=== PATIENT | male | born 1990 | race Caucasian/White ===

== ENCOUNTER 2020-05-31 16:39 | Outpatient (REF) | payer MEDICAID, SELFPAY ==
--- NOTE | ~2020-05-31 | US_ITS ---
EXAMINATION: US SCROTUM CLINICAL INFORMATION: Left sided pain suggestive of varicocele. COMPARISON: None TECHNIQUE: A sonogram of the scrotum was performed assessing cox-scale appearance and color Doppler flow. FINDINGS: RIGHT: Right testicle measures 4.5 x 2.3 x 3.3 cm, volume 17.3 mL. No focal testicular parenchymal lesions are visualized. Normal color Doppler flow of the right testicle. Right epididymal head is normal in size. No right hydrocele or varicocele is seen. LEFT: Left testicle measures 4.6 x 2.3 x 3.0 cm, volume 16.7 mL. No focal testicular parenchymal lesions are visualized. Normal color Doppler flow the left testicle. Left epididymal head is normal in size. No left hydrocele is seen. Small left-sided varicocele with veins measuring up to 4.4 mm with Valsalva maneuvering. US/US scrotum IMPRESSION: -Symmetrically sized testicles demonstrating normal color Doppler flow. -Small left-sided varicocele.
== END 2020-05-31 16:40 | disposition home or self-care (01) ==
LOC: HO.US 16:39
PROVIDERS: PCP Nurse Practitioner Primary Care; Visit Provider Nurse Practitioner Primary Care
DX: I86.1 Scrotal varices (principal); N50.812 Left testicular pain
CPT/HCPCS: 76870

== ENCOUNTER → 2020-08-18 13:58 | Outpatient (BNVA) | payer MEDICAID, SELFPAY | PROVIDERS: PCP Nurse Practitioner Primary Care; Visit Provider Urology | DX: Z13.89 Encounter for screening for other disorder (principal) | CPT/HCPCS: 99202 ==

== ENCOUNTER 2020-08-28 05:03 | Emergency (ER) | payer MEDICAID, SELFPAY ==
[2020-08-28 05:14] VITALS: BP 131/76; PULSE 69; RESP 16; TEMP 36.3; O2SAT 98; BMI 28.5
--- NOTE | 2020-08-28 05:28 | PC.NURSE ---
PT WAS ADMINISTERED BENADRYL 50 MG TAB P.O.
[2020-08-28] MEDS: diphenhydrAMINE HCL 25 MG TABLET 50 MG PO (05:59)
[2020-08-28 06:00] VITALS: BP 136/83; PULSE 58; RESP 17; O2SAT 100
[2020-08-28] MEDS: Famotidine/PF 20 MG/2 ML VIAL IVPUSH (06:13)
[2020-08-28] MEDS: methylPREDNISolone Sod Succ 125 MG/2 ML VIAL IVPUSH (06:13)
[2020-08-28 06:25] LABS: MANUAL DIFF FLAG NO
[2020-08-28 06:26] LABS: Basophils Percent Auto 0.2 % (0-2); Eosinophils Absolute Auto 0.1 X10*3/uL (0.0-0.4); Eosinophils Percent Auto 0.7 % (0-4); Hematocrit 47.8 % (42-52); Hemoglobin 17.2 g/dl (14.0-18.0); Imm Gran Abs Auto 0.04 X10*3/uL (0.00-0.03); Imm Gran Pct Auto 0.3 % (0.0-0.4); Lymphocytes Absolute Auto 1.7 X10*3/uL (1.2-4.9); Mean Corpuscular Hemoglobin 32.1 pg (27.0-33.0); Mean Corpuscular Volume 89.2 fL (80-98); Mean Platelet Volume 10.2 fL (9.4-12.4); Monocytes Absolute Auto 0.6 X10*3/uL (0.1-1.2); Monocytes Percent Auto 5.1 % (2-11); Neutrophils Absolute Auto 9.8 X10*3/uL (2.0-8.3); Neutrophils Percent Auto 79.7 % (45-73); Platelet Count 225 X10*3/uL (160-400); Red Blood Count 5.36 X10*6/uL (4.60-5.80); Red Cell Distribution Width 12.6 % (11.0-16.0); White Blood Count 12.3 X10*3/uL (4.8-10.8)
[2020-08-28 07:08] VITALS: BP 127/79; PULSE 77; RESP 16; O2SAT 97
--- NOTE | 2020-08-28 07:10 | PC.NURSE ---
INTRODUCED SELF TO PT. HIVES APPEAR TO HAVE MOSTLY RESOLVED, SOME REMAIN PRESENT ON HIS BACK. LIP SWELLING HAS RESOLVED. PT REPORTS FEELING WELL, ASIDE FROM MILD HEADACHE R/T ETOH CONSUMPTION LAST NIGHT. NO COMPLAINTS OFFERED.
--- NOTE | 2020-08-28 07:19 | ED_ITS ---
HPI - Allergic Reaction General Chief complaint: Allergic Reaction <Oksana Yoo MD - Last Filed: 08/28/20 07:32> Stated complaint: allergic reaction <Oksana Yoo MD - Last Filed: 08/28/20 07:32> Time Seen by Provider: 08/28/20 06:08 <Oksana Yoo MD - Last Filed: 08/28/20 07:32> Source: patient <Oksana Yoo MD - Last Filed: 08/28/20 07:32> Mode of arrival: ambulatory <Oksana Yoo MD - Last Filed: 08/28/20 07:32> History of Present Illness HPI narrative: 30-year-old male without significant past medical history and no known allergies who presents after waking up and discovering that his back was covered and are as itchy rash over the entire back and wrapping around to the anterior thorax as well as involving bilateral upper extremities. Denies feeling scratchy / itchy throat or feeling like there was difficulty with swallowing, patient reports that his lips are swollen. Patient denies any new medications, new formulations of current medications, lotions/ soaps / linen exposure and can only recall that last night he had his typical IPAs but then he did drink some homemade moonshine that had been made with watermelon. Patient endorses that he has had this before but maybe there was a slightly different ingredient. <Oksana Yoo MD - Last Filed: 08/28/20 07:32> Related Data Home medications: Previous Rx's Medication Instructions Recorded epinephrine [EpiPen] 0.3 mg IM Q10M PRN #1 ea 08/28/20 <Oksana Yoo MD - Last Filed: 08/28/20 07:32> Allergies/adverse reactions: Allergies Allergy/AdvReac Type Severity Reaction Status Date / Time No Known Allergies Allergy Verified 08/28/20 05:14 [No Known Allergies*] <Oksana Yoo MD - Last Filed: 08/28/20 07:32> Review of Systems Review of Systems: Pertinent positives and negatives as stated in HPI 10 point review of systems is otherwise negative. <Oksana Yoo MD - Last Filed: 08/28/20 07:32> PMFSH Past Medical History Source: nursing notes reviewed <Oksana Yoo MD - Last Filed: 08/28/20 07:32> Medical History: Medical History Left inguinal hernia <Oksana Yoo MD - Last Filed: 08/28/20 07:32> Surgical History: Surgical History History of surgery <Oksana Yoo MD - Last Filed: 08/28/20 07:32> Social History Social History: Social History Advance Directives: No Advance Directives Information Provided: No <Oksana Yoo MD - Last Filed: 08/28/20 07:32> Physical Exam Vital Signs: Vital Signs: Last Vital Signs Temp 97.4 F 08/28/20 05:14 Pulse 77 08/28/20 07:08 Resp 16 08/28/20 07:08 BP 127/79 08/28/20 07:08 Pulse Ox 97 08/28/20 07:08 Body Mass Index 28.5 <Oksana Yoo MD - Last Filed: 08/28/20 07:32> Vital Signs: Last Vital Signs Temp 97.4 F 08/28/20 05:14 Pulse 77 08/28/20 07:08 Resp 16 08/28/20 07:08 BP 127/79 08/28/20 07:08 Pulse Ox 97 08/28/20 07:08 Body Mass Index 28.5 <Isidro John MD - Last Filed: 08/28/20 08:37> VITAL SIGNS: Reviewed. GENERAL: Well developed, well nourished, in no acute distress. HEAD: Normocephalic/atraumatic EYES: PERRLA, EOMI NOSE: Nares patent bilateral OROPHARYNX: no oral lesions noted, posterior pharynx clear, there is noted mild swelling to the lips, but no tongue or posterior pharynx or facial swelling noted NECK: Supple, no adenopathy LUNGS: Normal breath sounds, no wheezes/rales/stridor, no tachypnea. SpO2<97> CARDIOVASCULAR: Regular rate and rhythm without noted murmurs ABDOMEN: Soft, non-tender, non-distended with bowel sounds. SKIN: Inspection of the skin reveals raised rash to primarily the posterior thorax with involvement of the anterior thorax and abdomen as well as bilateral upper extremities NEUROLOGIC: Alert and oriented x 4. <Oksana Yoo MD - Last Filed: 08/28/20 07:32> Course Course Course Narrative: 30-year-old male with history and clinical presentation consistent with angioedema and hives but unknown trigger. On arrival patient received Benadryl, Pepcid, Solu-Medrol, airway intact. 0655: On re-evaluation there is been almost complete resolution of hives and patient reports that his lips are feeling much reduced in size. Signed out to Dr John. <Oksana Yoo MD - Last Filed: 08/28/20 07:32> MDM - Allergic Reaction Lab Data Result diagrams: : 08/28/20 06:20 08/28/20 06:20 <Oksana Yoo MD - Last Filed: 08/28/20 07:32> Labs: Lab Results 08/28/20 08/28/20 Range/Units 06:20 06:20 WBC 12.3 H (4.8-10.8) X10*3/uL RBC 5.36 (4.60-5.80) X10*6/uL Hgb 17.2 (14.0-18.0) g/dl Hct 47.8 (42-52) % MCV 89.2 (80-98) fL MCH 32.1 (27.0-33.0) pg MCHC 36.0 (31.0-36.0) g/dl RDW 12.6 (11.0-16.0) % Plt Count 225 (160-400) X10*3/uL MPV 10.2 (9.4-12.4) fL Immature Gran % (Auto) 0.3 (0.0-0.4) % Neut % (Auto) 79.7 H (45-73) % Lymph % (Auto) 14.0 L (20-40) % [place] % (Auto) 5.1 (2-11) % Eos % (Auto) 0.7 (0-4) % Baso % (Auto) 0.2 (0-2) % Lymph # (Auto) 1.7 (1.2-4.9) X10*3/uL [place] # (Auto) 0.6 (0.1-1.2) X10*3/uL Eos # (Auto) 0.1 (0.0-0.4) X10*3/uL Baso # (Auto) 0.0 (0.0-0.2) X10*3/uL Abs Immat Gran (auto) 0.04 H (0.00-0.03) X10*3/uL Absolute Neuts (auto) 9.8 H (2.0-8.3) X10*3/uL Absolute Nucleated RBC 0.000 (0.0-0.012) X10*3/uL Nucleated RBC % (auto) 0.0 (0.0-0.2) /100WBC Sodium 144 (135-145) mmol/L Potassium 3.9 (3.3-5.1) mmol/L Chloride 107 (96-108) mmol/L Carbon Dioxide 27 (22-29) mmol/L Anion Gap 14 (12-20) BUN 10 (9-16) mg/dL Creatinine 1.05 (0.5-1.4) mg/dL Estim Creat Clear Calc 118.7 Estimated GFR > 60 Random Glucose 70 (60-115) mg/dL Calcium 9.5 (8.4-10.2) mg/dL Total Bilirubin 1.7 H (0.0-1.0) mg/dL AST 30 (5-37) U/L ALT 58 H (0-40) U/L Alkaline Phosphatase 88 (39-117) U/L Total Protein 7.4 (6.5-8.0) g/dL Albumin 4.6 (3.5-5.0) g/dL <Oksana Yoo MD - Last Filed: 08/28/20 07:32> Lab Results 08/28/20 08/28/20 Range/Units 06:20 06:20 WBC 12.3 H (4.8-10.8) X10*3/uL RBC 5.36 (4.60-5.80) X10*6/uL Hgb 17.2 (14.0-18.0) g/dl Hct 47.8 (42-52) % MCV 89.2 (80-98) fL MCH 32.1 (27.0-33.0) pg MCHC 36.0 (31.0-36.0) g/dl RDW 12.6 (11.0-16.0) % Plt Count 225 (160-400) X10*3/uL MPV 10.2 (9.4-12.4) fL Immature Gran % (Auto) 0.3 (0.0-0.4) % Neut % (Auto) 79.7 H (45-73) % Lymph % (Auto) 14.0 L (20-40) % [place] % (Auto) 5.1 (2-11) % Eos % (Auto) 0.7 (0-4) % Baso % (Auto) 0.2 (0-2) % Lymph # (Auto) 1.7 (1.2-4.9) X10*3/uL [place] # (Auto) 0.6 (0.1-1.2) X10*3/uL Eos # (Auto) 0.1 (0.0-0.4) X10*3/uL Baso # (Auto) 0.0 (0.0-0.2) X10*3/uL Abs Immat Gran (auto) 0.04 H (0.00-0.03) X10*3/uL Absolute Neuts (auto) 9.8 H (2.0-8.3) X10*3/uL Absolute Nucleated RBC 0.000 (0.0-0.012) X10*3/uL Nucleated RBC % (auto) 0.0 (0.0-0.2) /100WBC Sodium 144 (135-145) mmol/L Potassium 3.9 (3.3-5.1) mmol/L Chloride 107 (96-108) mmol/L Carbon Dioxide 27 (22-29) mmol/L Anion Gap 14 (12-20) BUN 10 (9-16) mg/dL Creatinine 1.05 (0.5-1.4) mg/dL Estim Creat Clear Calc 118.7 Estimated GFR > 60 Random Glucose 70 (60-115) mg/dL Calcium 9.5 (8.4-10.2) mg/dL Total Bilirubin 1.7 H (0.0-1.0) mg/dL AST 30 (5-37) U/L ALT 58 H (0-40) U/L Alkaline Phosphatase 88 (39-117) U/L Total Protein 7.4 (6.5-8.0) g/dL Albumin 4.6 (3.5-5.0) g/dL <Isidro John MD - Last Filed: 08/28/20 08:37> Discharge Plan Discharge Clinical Impression: Angioedema, Allergic reaction <Oksana Yoo MD - Last Filed: 08/28/20 07:32> Patient Disposition: Home, Self-Care <Oksana Yoo MD - Last Filed: 08/28/20 07:32> Instructions: Urticaria (ED), Angioedema (ED) <Oksana Yoo MD - Last Filed: 08/28/20 07:32> Additional Instructions: Return to the ER for acute worsening of symptoms. <Oksana Yoo MD - Last Filed: 08/28/20 07:32> Prescriptions: New epinephrine [EpiPen] 0.3 mg/0.3 mL auto-injector 0.3 mg IM Q10M PRN (Reason: anaphylaxis) Qty: 1 RF: 0 <Oksana Yoo MD - Last Filed: 08/28/20 07:32> Referrals: Liz Ying, [employer] [Primary Care Provider] - 2 days <Oksana Yoo MD - Last Filed: 08/28/20 07:32>
[2020-08-28 07:24] LABS: Alanine Aminotransferase 58 U/L (0-40); Albumin Level 4.6 g/dL (3.5-5.0); Alkaline Phosphatase 88 U/L (39-117); Anion Gap 14 (12-20); Aspartate Amino Transferase 30 U/L (5-37); Bilirubin Total 1.7 mg/dL (0.0-1.0); Blood Urea Nitrogen 10 mg/dL (9-16); Calcium 9.5 mg/dL (8.4-10.2); Carbon Dioxide 27 mmol/L (22-29); Chloride 107 mmol/L (96-108); Creatinine Clr Calc Pharmacy 118.7; Estimated Glomerular Filt Rate > 60; Glucose Random 70 mg/dL (60-115); Potassium 3.9 mmol/L (3.3-5.1); Sodium 144 mmol/L (135-145); Total Protein 7.4 g/dL (6.5-8.0)
[2020-08-28 09:23] VITALS: BP 128/82; PULSE 78; RESP 16; O2SAT 98
== END 2020-08-28 09:36 | disposition home or self-care (01) ==
PROVIDERS: Student in an Organized Health Care Education/Training Program; Emergency Provider Emergency Medicine Emergency Medical Services; PCP Nurse Practitioner Primary Care
DX: T78.3XXA Angioneurotic edema, initial encounter (principal)
CPT/HCPCS: 36415; 80053; 85025; 96374; 96375; 99284; J2930; Q0163

== ENCOUNTER 2023-09-05 06:50 | Outpatient (REF) | payer MEDICAID, SELFPAY ==
[2023-09-05 08:28] LABS: Alanine Aminotransferase 47 U/L (0-40); Albumin Level 4.1 g/dL (3.5-5.0); Alkaline Phosphatase 72 U/L (39-117); Anion Gap 9 (12-20); Aspartate Amino Transferase 32 U/L (5-37); Bilirubin Total 1.1 mg/dL (0.0-1.0); Blood Urea Nitrogen 12 mg/dL (9-16); Calcium 9.1 mg/dL (8.4-10.2); Carbon Dioxide 32 mmol/L (22-29); Chloride 104 mmol/L (96-108); Cholesterol 130 mg/dL (<200); Estimated Glomerular Filt Rate > 60; Glucose Random 94 mg/dL (60-115); HDL Cholesterol 40 mg/dL (>40); LDL Cholesterol Calculated 75 mg/dL (<100); Potassium 4.3 mmol/L (3.3-5.1); Sodium 141 mmol/L (135-145); Total Protein 6.7 g/dL (6.5-8.0); Triglycerides 79 mg/dL (<150)
[2023-09-05 08:32] LABS: TSH reflex Free T4 1.48 uIU/mL (0.32-4.0)
== END 2023-09-05 06:51 | disposition home or self-care (01) ==
LOC: HO.LAB 06:50
PROVIDERS: PCP Nurse Practitioner Primary Care; Visit Provider Internal Medicine
DX: R07.89 Other chest pain (principal)
CPT/HCPCS: 36415; 80053; 80061; 84443

== ENCOUNTER 2023-09-25 15:15 | Outpatient (AMB) | payer MEDICAID, SELFPAY ==
--- NOTE | 2023-09-25 15:18 | MHC.OFFVIS ---
Intake Visit Reasons: [employer]- ganglion cyst of right wrist Intake Note: Danny is a 33 yo right hand dominant male who presents today as a new patient for right wrist ganglion cyst. Patient reports numbness, tingling before the cyst appeared, Patient describes pain only if he hits the cyst on something by accident. Patient states he has had this for about 8-9 months. Allergies No Known Allergies [No Known Allergies*] Allergy (Verified 09/25/23 15:18) HPI HPI [employer]- ganglion cyst of right wrist: Details: Patient is a 33-year-old male who presents for evaluation of mass of right dorsal wrist. The patient reports that this has been ongoing for approximately 8-9 months, and then it has grown larger and more firm over this time. Patient reports that this mass is nonpainful at baseline, but states that with palpation of the center of the mass he feels a slight discomfort, and that the mass does not interfere with range of motion, however he is bothered by the lesion and would like to have it removed if possible. No other acute complaints or concerns at this time. [facility] Medical History Left inguinal hernia Surgical History History of surgery Review of Systems Const All systems reviewed & are unremarkable except as noted in HPI and below Physical Exam Extrem Other: Patient is alert, oriented, and in no acute distress. Neuro: Median, ulnar, radial nerves motor and sensory intact and sensation is normal to the tips of all digits. Vascular: Cap refill brisk Pain: Patient reports mild tenderness to palpation about the apex of the mass of the dorsal right wrist. No other Pain or tenderness to palpation ROM: Range of motion of the right hand and wrist full and intact Skin: No lacerations or abrasions. General: Of note, there is an approximately 1.5 cm mass noted over the 3rd dorsal compartment of the dorsal wrist. Mass feels fluid filled, but firm No ecchymosis, erythema, or evidence of infection. Psych: Appears grossly normal Affect normal Attitude cooperative Assessment & Plan Assessment & Plan (1) Mass of left wrist: Code(s): R22.32 - Localized swelling, mass and lump, left upper limb Category: Medical Plan 1. Massive left wrist Present for approximately 8-9 months Due to presentation, appearance, and exam, suspicion that this mass is in fact a dorsal left wrist ganglion cyst is high I educated the patient about the condition. I discussed both operative and nonoperative treatment options. The patient would like to proceed with surgery. Patient is informed about the possibility of aspiration of the cyst, but when he is told there is an approximately 50% chance that will return after aspiration, the patient decides that he would like to proceed with surgical removal for the higher chance of no recurrence. The risks and benefits of operative treatment were discussed with the patient and the patient wishes to proceed with surgery. These risks include, but are not limited to, risk of damage to blood vessels, nerves, tendons, infection, recurrence, incomplete relief of preoperative symptoms, persistent pain, possible need for further surgery, and the risks associated with regional blocks and/or anesthesia. Plan is to take the patient to the operating room at some point in the next few weeks for the following procedures: 1. Right dorsal wrist ganglion excision All of the preoperative paperwork including the consent was discussed today. All of the patient's questions were answered in the clinic today. The patient understands that they will be in contact with our surgical services tech to discuss scheduling their procedure. Patient denies diabetes, blood thinners, asthma, heart issues, lung issues, kidney issues, or current smoking. Medications: Discontinued prednisone Discontinued Reason: Patient no longer taking 60 mg (3 x 20 mg) PO DAILY 5 days 15 tabs 0RF Coding Level of Care Code New Pt Level 4 (13470) Diagnoses Mass of left wrist R22.32
== END 2023-09-25 16:18 | disposition home or self-care (01) ==
PROVIDERS: PCP Nurse Practitioner Primary Care; Visit Provider Orthopaedic Surgery
DX: R22.32 Localized swelling, mass and lump, left upper limb (principal)
CPT/HCPCS: 99204

== ENCOUNTER → 2023-09-25 15:15 | Outpatient (BNVA) | payer MEDICAID, SELFPAY | PROVIDERS: PCP Nurse Practitioner Primary Care; Visit Provider Orthopaedic Surgery | DX: R22.32 Localized swelling, mass and lump, left upper limb (principal) | CPT/HCPCS: 99202 ==

== ENCOUNTER → 2023-09-27 07:56 | Outpatient (REF) | payer MEDICAID, SELFPAY ==
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
== END ==
LOC: HO.CARD 07:56
PROVIDERS: PCP Nurse Practitioner Primary Care; Visit Provider Internal Medicine
DX: R07.89 Other chest pain (principal)
CPT/HCPCS: 93017

== ENCOUNTER → 2023-09-27 08:02 | Outpatient (BNV) | payer MEDICAID, SELFPAY | PROVIDERS: PCP Nurse Practitioner Primary Care; Visit Provider Nurse Practitioner | DX: I49.3 Ventricular premature depolarization (principal) | CPT/HCPCS: 93016; 93018 ==

== ENCOUNTER 2023-11-07 13:29 | Outpatient (AMB) | payer MEDICAID, SELFPAY ==
[2023-11-07 13:54] VITALS: BMI 28.6
--- NOTE | 2023-11-07 13:54 | A.OFFVIS_ITS ---
Vital Signs 11/07/23 13:54 Height 5 ft 11 in Weight 205 lb BMI 28.6 Intake Visit Reasons: Preop RT dorsal wrist exc 11/12/23 AR Intake Note: Danny is a 33 year old male who presents today preoperatively for a right dorsal ganglion cyst excision scheduled for 11/12/[address] Partida. 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 He complains of a right dorsal wrist ganglion which has gotten larger in size after getting smaller for awhile. He is here today to talk about surgery [facility] Medical History Left inguinal hernia Surgical History History of surgery Physical Exam Vital Signs: BMI result Body Mass Index 28.6 Extrem Other: The patient was alert oriented and in no acute distress. Has a 1.8 cm diameter right dorsal wrist ganglion roughly over the 3rd dorsal compartment of his right wrist. It appears to be fluid filled. No overlying skin changes. It is not particularly tender. He can make a fist and extend all of his digits. Median ulnar radial nerve motor and sensory grossly intact. Assessment & Plan Assessment & Plan (1) Ganglion cyst of dorsum of right wrist: Code(s): M67.431 - Ganglion, right wrist Category: Medical Plan Assessment and plan: 1. Right dorsal wrist ganglion I educated the patient about this condition We discussed operative and non operative treatment options and he wishes to proceed with surgery The risks and benefits of operative treatment were discussed with the patient and the patient wishes to proceed with surgery. These risks include, but are not limited to risk of damage to blood vessels, nerves, tendons, infection, recurrence, incomplete relief of preoperative symptoms, persistent pain, possible need for further surgery and the risks associated with regional blocks and anesthesia. The plan is to take the patient to the operating room sometime in the next week or 2 for the following procedures: 1. Right dorsal wrist ganglion excision 2. [ ] All of the preoperative paperwork including the consent was filled out today. All the patient's questions were answered. Coding Level of Care Code Est Pt Level 4 (26435) Diagnoses Ganglion cyst of dorsum of right wrist M67.431
== END 2023-11-07 14:41 | disposition home or self-care (01) ==
PROVIDERS: PCP Nurse Practitioner Primary Care; Visit Provider Orthopaedic Surgery
DX: M67.431 Ganglion, right wrist (principal)
CPT/HCPCS: 99024

== ENCOUNTER → 2023-11-07 13:29 | Outpatient (BNVA) | payer MEDICAID, SELFPAY | PROVIDERS: PCP Nurse Practitioner Primary Care; Visit Provider Orthopaedic Surgery | DX: M67.431 Ganglion, right wrist (principal) | CPT/HCPCS: 99212 ==

== ENCOUNTER 2023-11-22 06:05 | Day surgery (SDC) | payer MEDICAID, SELFPAY ==
--- NOTE | 2023-11-08 12:25 | HO.ANESPROP2 ---
Documented by User: Katt Peteresn NP 11/08/23 12:26 HPI - Anesthesia Eval Consult details Narrative: 33yo M for Right Excision Dorsal Ganglion PMFSH Active Problems Active Problems: All Active Problems Ganglion cyst of dorsum of right wrist (Acute) Mass of left wrist (Acute) Left groin pain (Acute) Past Medical History Medical History Left inguinal hernia Surgical History Surgical History History of surgery Social History Social History Patient Tobacco Use Status: Never used Tobacco Substance Use Frequency: Daily Have you been hit, kicked, punched, or otherwise hurt by someone within the past year? If so, by whom?: No Are you DNR?: No Advance Directives: No Advance Directives Information Provided: Yes Nutrition Risks: No Nutritional Risk Meds Allergies Allergy/AdvReac Type Severity Reaction Status Date / Time No Known Allergies Allergy Verified 11/07/23 13:55 [No Known Allergies*] Exam Pertinent Lab Results Pertinent Lab Results: Laboratory Tests 09/05/23 07:13 Sodium 141 Potassium 4.3 Chloride 104 Carbon Dioxide 32 H BUN 12 Creatinine 1.25 Assessment and Plan Assessment Anesthesia Assessment: Chart Reviewed Documented by User: Gabriela Alaniz MD 11/22/23 07:46 PMFSH Past Medical History Medical History Left inguinal hernia Family History Family history of problems with anesthesia: No Surgical History Surgical History History of surgery History of Problems with Anesthesia: No Social History Social History Patient Tobacco Use Status: Never used Tobacco Substance Use Frequency: Daily Have you been hit, kicked, punched, or otherwise hurt by someone within the past year? If so, by whom?: No Are you DNR?: No Advance Directives: No Advance Directives Information Provided: Yes Nutrition Risks: No Nutritional Risk Meds Allergies Allergy/AdvReac Type Severity Reaction Status Date / Time No Known Allergies Allergy Verified 11/07/23 13:55 [No Known Allergies*] Exam Airway Mallampati Class: III TM Dist: >3cm Neck ROM: Full Heart: rrr Lungs: cta Assessment and Plan Assessment Anesthesia Assessment: Anesthesia Plan Discussed Final Anesthetic Review Family History of Problems with Anesthesia: No History of Problems with Anesthesia: No NPO: Yes ASA Class: III Final Preanesthetic Review: No Changes in Pt Med Stat, Meds/Allgs Chart Reviewed, Consent Obtained/Reviewed and Anes Risks/Benef Reviewed Patient Risk: Intermediate Procedure Risk: Low Anesthetic Plan Anesthetic Plan: GA Disposition: Standard PACU
[2023-11-08 12:59] VITALS: BMI 28.6
[2023-11-22 06:22] VITALS: BP 128/84; PULSE 63; RESP 18; TEMP 36.8; O2SAT 97; BMI 28.6
[2023-11-22] MEDS: Lactated Ringers 1,000 ML 100 ML IVCONT (06:45)
--- NOTE | 2023-11-22 07:50 | P.OP_ITS ---
Operative Note Operative Note Date of Service: 11/22/23 Narrative: Operative Note Narrative: Preop diagnosis: 1. Right dorsal wrist ganglion Postop diagnosis: Same Procedure: 1. Right dorsal wrist ganglion excisional biopsy Surgeon: Rohini Partida MD [employer] Pipe Fitter: Epifanio PORRAS Anesthesia: General Findings: 1. Right dorsal wrist ganglion approximately 1.5 cm diameter, filled with clear viscous fluid consistent with a ganglion Tourniquet time: 20 minutes EBL: 5.0 ml Specimen: dorsal wrist ganglion Drains: None Complications: None Disposition: Brought to the recovery room in stable condition Plan: Follow-up in 10-14 days for wound check, suture removal and to check pathology Indications: The patient is 33 years old with a right dorsal wrist ganglion that has been unresponsive to nonoperative management. The risks and benefits of operative treatment, including but not limited to risk of damage to blood vessels, nerves, tendons, infection, recurrence, persistent pain or numbness, or need for further surgery were discussed with the patient and they wished to proceed with surgery. Procedure: Once consent was obtained patient was brought back to the operating suite and placed in the operating table in a supine position. Perioperative antibiotics and anesthesia was administered by the anesthesia team. A tourniquet was applied to the proximal aspect of the right upper extremity and the limb was prepped and draped in a standard surgical fashion. The limb was elevated exsanguinated with Esmarch bandage and the tourniquet inflated to 250 mm of mercury for a total tourniquet time of 20 minutes. A 2. cm longitudinal incision was made over the dorsal aspect of the right wrist, centered over the dorsal wrist ganglion. Ganglion was located over the dorsal central aspect of the right wrist. The incision was made with a #15 blade through the skin to the subcutaneous tissues. Tenotomy scissors were then used to carefully dissect down through the subcutaneous layer to the dorsal wrist ganglion. It measured approximately 1.5 cm in diameter and was filled with clear viscous fluid consistent with a ganglion. It was carefully mobilized from the surrounding soft tissues using tenotomy and iris scissors. It's stalk passed through the interval between the ECRB and the 4th dorsal compartment tendons at the distal aspect of the extensor retinaculum. The Bovie was used to cauterize the stalk to reduce risk of recurrence., and the ganglion was cut free and removed to the back table to be sent for histopathologic review. No further masses were identified. At this point the tourniquet was deflated and hemostasis obtained with a brief period of local pressure and monopolar electrocautery. Wound was irrigated with normal saline. The subcutaneous layer was closed with some 4-0 Vicryl suture, and the skin edges were reapproximated with some 5-0 Prolene suture. The wound was infiltrated with some 1% lidocaine with epinephrine for postop pain control and a sterile dressing was applied. The patient appears to have tolerated the procedure well and with no complications. All digits were well vascularized conclusion of the case.
--- NOTE | 2023-11-22 07:50 | MHC.SHP ---
Pre-Procedural Eval Section A - 24 Hr Update-Section A only Date of Service: 11/22/23 The patient is an INPATIENT: No Changes since office visit: No Cold of Flu in the past 2 weeks, No New Medical Problems, No Changes in Medication and No Patient answered all questions The patient has been examined within 24 hours of the surgical procedure. The History & Physical has been completed within 30 days and I have reviewed it.: Yes Section B - Complete if H&P > 30 days Chief Complaint: Localized swelling, mass and lump, left upper limb Allergies: Allergies Allergy/AdvReac Type Severity Reaction Status Date / Time No Known Allergies Allergy Verified 11/07/23 13:55 [No Known Allergies*] Plan I have reviewed the history and physical and performed a pertinent physical examination on my patient. No changes have occurred unless specified. Time Spent With Patient Time: Total time managing care of this patient today ____ minutes.
[2023-11-22 09:03] VITALS: BP 106/59; PULSE 63; RESP 16; TEMP 36.3; O2SAT 97
[2023-11-22 09:08] VITALS: BP 120/65; PULSE 65; RESP 16; O2SAT 99
[2023-11-22 09:13] VITALS: BP 116/66; PULSE 58; RESP 16; O2SAT 98
[2023-11-22 09:18] VITALS: BP 132/87; PULSE 60; RESP 16; O2SAT 98
[2023-11-22 09:33] VITALS: BP 141/87; PULSE 55; RESP 16; TEMP 36.3; O2SAT 100
== END 2023-11-22 10:20 | disposition home or self-care (01) ==
PROVIDERS: PCP Nurse Practitioner Primary Care; Visit Provider Orthopaedic Surgery
PROC: (CPT 25111; principal; 2023-11-22 07:30)
DX: M67.431 Ganglion, right wrist (principal); Z98.890 Other specified postprocedural states
CPT/HCPCS: 25111; 88304; J0131; J0690; J1100; J2405; J2704; J2795; J3010

== ENCOUNTER → 2023-11-22 06:05 | Outpatient (BNV) | payer MEDICAID, SELFPAY | PROVIDERS: PCP Nurse Practitioner Primary Care; Visit Provider Orthopaedic Surgery | DX: M67.431 Ganglion, right wrist (principal) | CPT/HCPCS: 25111 ==

== ENCOUNTER 2023-12-05 13:51 | Outpatient (AMB) | payer MEDICAID, SELFPAY ==
--- NOTE | 2023-12-05 14:02 | MHC.OFFVIS ---
Vital Signs 12/05/23 14:04 Height 5 ft 11 in Weight 208 lb BMI 29.0 Handedness Right Intake Visit Reasons: PO RT dorsal wrist exc 11/22/23 AR Intake Note: Danny is a 31 year old right hand dominant male who presents today for a post operative visit S/P Right dorsal wrist ganglion excisional biopsy w/ Dr Partida DS: 11/22/2023. Patient reports at the end of the day his right hand is sore and weaker. He says he has one more oxycodone he is saving if he has severe pain. He has been using triple antibiotic on his incision and says there has been no signs of pus or any withdrawal of liquids. Denies numbness and tingling. Allergies No Known Allergies [No Known Allergies*] Allergy (Verified 12/05/23 14:05) HPI HPI PO RT dorsal wrist exc 11/22/23 AR: Details: Patient is a 33-year-old male who presents for postoperative evaluation of right dorsal wrist ganglion excision, DOS 11/22/2023. Today, the patient reports that he is feeling well, as an experiencing no acute symptoms or concerns at this time. Patient reports no pain, but states that he feels slightly stiff in the area of the incision when he attempts range of motion of the wrist. Patient reports no erythema or drainage from the incision site. No numbness or tingling in the right hand. No other acute complaints or concerns at this time. [facility] Medical History Left inguinal hernia Surgical History History of surgery Social History Patient Tobacco Use Status: Never used Tobacco Physical Exam Vital Signs: BMI result Body Mass Index 29.0 Extrem Other: Patient is alert, oriented, and in no acute distress. Neuro: Median, ulnar, radial nerves motor and sensory intact and sensation is normal to the tips of all digits. Vascular: Cap refill brisk Pain: No tenderness to palpation about the incision site, radial styloid, ulnar styloid, or elsewhere in the right hand wrist ROM: Range of motion of the right hand and wrist full and intact, but the patient reports a ?tightness? sensation in the dorsal right wrist with flexion Skin: Well-approximated well-healing incision site noted on the dorsal right wrist No erythema or evidence of infection Psych: Appears grossly normal Affect normal Attitude cooperative Assessment & Plan Assessment & Plan (1) Ganglion cyst of dorsum of right wrist: Code(s): M67.431 - Ganglion, right wrist Category: Medical Plan 1. 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
[2023-12-05 14:04] VITALS: BMI 29.0
== END 2023-12-05 14:44 | disposition home or self-care (01) ==
PROVIDERS: PCP Nurse Practitioner Primary Care
DX: M67.431 Ganglion, right wrist (principal)
CPT/HCPCS: 99024

== ENCOUNTER → 2023-12-05 13:51 | Outpatient (BNVA) | payer MEDICAID, SELFPAY | PROVIDERS: PCP Nurse Practitioner Primary Care | DX: M67.431 Ganglion, right wrist (principal) | CPT/HCPCS: 99212 ==

== ENCOUNTER 2023-12-31 15:55 | Outpatient (REF) | payer MEDICAID, SELFPAY ==
[2023-12-31 17:44] LABS: MANUAL DIFF FLAG NO
[2023-12-31 17:50] LABS: Basophils Absolute Auto 0.1 X10*3/uL (0.0-0.2); Basophils Percent Auto 0.7 % (0-2); Eosinophils Absolute Auto 0.1 X10*3/uL (0.0-0.4); Eosinophils Percent Auto 0.7 % (0-4); Hematocrit 50.1 % (42.0-52.0); Imm Gran Abs Auto 0.01 X10*3/uL (0.00-0.03); Imm Gran Pct Auto 0.1 % (0.0-0.4); Lymphocytes Absolute Auto 1.8 X10*3/uL (1.2-4.9); Lymphocytes Percent Auto 25.5 % (20-40); Mean Corpuscular HGB Conc 35.9 g/dl (31.0-36.0); Mean Platelet Volume 10.8 fL (9.4-12.4); Monocytes Absolute Auto 0.6 X10*3/uL (0.1-1.2); Monocytes Percent Auto 8.3 % (2-11); Neutrophils Absolute Auto 4.5 x10*3/uL (2.0-8.3); Neutrophils Percent Auto 64.7 % (45-73); Platelet Count 228 X10*3/uL (160-400); Red Blood Count 5.63 X10*6/uL (4.60-5.80); Red Cell Distribution Width 12.8 % (11.0-16.0); White Blood Count 6.9 X10*3/uL (4.8-10.8)
[2024-01-01 03:50] LABS: HIV AB/AG Nonreactive (Nonreactive); HIV Num 1 0.08 S/CO (0.00-0.99); ~HepC Num1 0.11 S/CO (0.00-0.79); ~Hepatitis C Antibody Nonreactive (Nonreactive)
[2024-01-02 11:39] LABS: RPR Rapid Plasma Reagin NON-REACTIVE (NON-REACTIVE)
[2024-01-02 14:19] LABS: Immunoglobulin A 376 mg/dL (47-310); Transglutaminase IgA 2.2 U/mL
== END 2023-12-31 15:56 | disposition home or self-care (01) ==
LOC: HO.HHCL 15:55
PROVIDERS: Visit Provider Nurse Practitioner Primary Care
DX: K52.9 Noninfective gastroenteritis and colitis, unspecified (principal); Z11.3 Encounter for screening for infections with a predominantly sexual mode of transmission
CPT/HCPCS: 36415; 82784; 85025; 86364; 86592; 86803; 87389

== ENCOUNTER 2024-01-15 13:42 | Outpatient (REF) | payer MEDICAID, SELFPAY ==
[2024-01-16 13:33] LABS: Adenovirus F 40/41 Not Detected (Not Detect.); Astrovirus Not Detected (Not Detect.); Campylobacter Not Detected (Not Detect.); Cryptosporidium Not Detected (Not Detect.); Cyclospora cayetanensis Not Detected (Not Detect.); E. coli EAEC Not Detected (Not Detect.); E. coli EPEC Detected (Not Detect.); E. coli ETEC Not Detected (Not Detect.); E. coli STEC Not Detected (Not Detect.); Entamoeba histolytica Not Detected (Not Detect.); Giardia lamblia Not Detected (Not Detect.); Norovirus GI/GII Not Detected (Not Detect.); Plesiomonas shigelloides Not Detected (Not Detect.); Rotavirus A Not Detected (Not Detect.); Salmonella Not Detected (Not Detect.); Sapovirus Not Detected (Not Detect.); Shigella sp./EIEC Not Detected (Not Detect.); Vibrio Not Detected (Not Detect.); Vibrio Cholerae Not Detected (Not Detect.); Yersinia enterocolitica Not Detected (Not Detect.)
[2024-01-22 21:48] LABS: Calprotectin, Fecal 81 mcg/g
== END 2024-01-15 13:43 | disposition home or self-care (01) ==
LOC: HO.HHCLNP 13:42
PROVIDERS: Visit Provider Nurse Practitioner Primary Care
DX: K52.9 Noninfective gastroenteritis and colitis, unspecified (principal)
CPT/HCPCS: 83993; 87507

== ENCOUNTER 2024-12-04 09:47 | Outpatient (REF) | payer MEDICAID, SELFPAY | END 2024-12-04 09:48 | disposition home or self-care (01) | LOC: HO.HHCL 09:47 | PROVIDERS: PCP Nurse Practitioner Primary Care; Visit Provider Nurse Practitioner Primary Care | DX: Z13.89 Encounter for screening for other disorder (principal) ==

== ENCOUNTER 2024-12-05 09:11 | Outpatient (REF) | payer MEDICAID, SELFPAY ==
--- OUTSIDE RECORDS SUMMARY | 2024-12-05 09:35 | XMS_ITS | Clinical Summary ---
Author Organization [facility] Address [address] [place] [phone] Phone Care Team Providers Care Forging Press Setter Up Name Role Phone Unavailable Primary Care Provider Unavailabl e Immunizations Immunization Administration Dates Next Due DTP 06/22/1994, 2,02/21/1990,1989,1989 Hep B, ped/adol 02/06/2002,07/01/2001,03/25/2001 Hib (PRP-T) 12/02/1990, 1,04/25/1990,1989 MMR 06/22/1994,12/02/1990 OPV 06/22/1994, 2,1989,1989 Td (adult) (MBL), 2 Lf tetan us toxoid, PF, adsorbed 05/13/2001 Family History Relation Name Status Comments Father Alive Father: Alive a nd well Mother Alive Mother: Alive a nd well Sister Alive Sister: Alive a nd well, Asthma Social History Tobacco Use Types Packs/Day Years Used Date Smoking Tobacco: Never Assessed Sex and Gender Information Value Date Recorded Sex Assigned at Not on file Legal Sex Male 4:14 PM EDT Gender Identity Not on file Sexual Orientation Not on file Plan of Treatment Health Maintenance Due Date Last Done Comments DTaP,Tdap,and Td Vaccines (6 - Tdap) 05/14/2001 05/13/2001, 06/22/1994, 03/31/1991, Additional history exists Varicella Vaccines (1 of 2 - 13+ 2-dose series) 2002 HPV Vaccines (1 - 3-dose SCDM series) 2016 Influenza Vaccines (#1) 2024 COVID-19 Vaccine (2024- season) 2024 HIB Vaccines Completed 12/02/1990, 06/27, 04/25/1990, Additional history exists IPV Vaccines Completed 06/22/1994, 04/1991, 1989, Additional history exists MMR Vaccines Completed 06/22/1994, 12/02/1990 Hepatitis B Vaccines Completed 02/06/2002, 07/01/2001, 03/25/2001 Hepatitis A Vaccines Aged Out No long er eligible based on patient's age to complete this topic Men B Vaccine Aged Out No longer elig ible based on patient's age to complete this topic Meningococcal Vaccine Aged Out No ron shruthi eligible based on patient's age to complete this topic Pneumococcal Vaccine Aged Out No long er eligible based on patient's age to complete this topic
--- OUTSIDE RECORDS SUMMARY | 2024-12-05 09:36 | XMS_ITS | Clinical Summary ---
Author Organization [email or web address] Address [address] [facility] [address] [place] [address] Care Team Providers Care Patient Companion Name Role Phone Liz Ying JOHNNIE Primary Care Provider [phone] Allergies No known active allergies Medications omeprazole (PriLOSEC) [address] capsule Take 20 mg by mouth before breakfast. Do not crush or chew. Take daily Active Viagra 50 MG tabletIndicati ons:Other post-procedura l erectile dysfunction TAKE 1 TABLET 1 HOUR BEFORE SEXUAL RELATIONS ONCE DAILY NEEDED. 20 tablet 1 06/11/19 25 Active ketoconazole (NIZOral) 2 % shampooIndicat ions:Seborrhei c dermatitis USE DIRECTED 3 TIMES A [address]EEK IN place OF shampoo 240 mL 1 09/16/19 25 Active doxycycline (Vibra-Tabs) 100 MG tabletIndicati ons:Routine screening for STI (sexually transmitted infection) TAKE 2 TABLETS BY MOUTH ONCE WITHIN 72 HOURS AFTER UNPROTECTED INTERCOURSE. REPEAT NEEDED. TAKE WITH A FULL GLASS OF WATER AND DO NOT LIE DOWN FOR AT LEAST 30 MINUTES AFTER. 60 tablet 11/25/19 25 Active amphetamine-de xtroamphetamin e XR (Adderall XR) 15 MG 24 hr capsuleIndicat ions:Adult ADHD Take 1 capsule (15 mg) by mouth Once per day. Do not crush or chew. 30 capsule 12/03/19 25 025 Active doxycycline (Vibra-Tabs) 100 MG tabletIndicati ons:Routine screening for STI (sexually transmitted infection) Take 2 tablets (200mg) once within 72 hours after unprotected intercourse. Repeat as needed. Take with a full glass of water and do not lie down for at least 30 minutes after. 30 tablet 07/17/19 25 025 Discontinued(R eorder (will not trigger notification to Pharmacy)) amphetamine-de xtroamphetamin e XR (Adderall XR) 15 MG 24 hr capsuleIndicat ions:Adult ADHD Take 1 capsule (15 mg) by mouth Once per day. Do not crush or chew. 30 capsule 10/07/19 25 025 Discontinued(R eorder (will not trigger notification to Pharmacy)) Active Problems Problem Noted Date Diagnosed Date Adult ADHD 08/20/2024 Post-procedural erectile dysfunction 12/31/2023 Overview (12/31/2023): s/p hernia surgery. Doing ok w/ PRN viagra 50mg. Ganglion cyst of dorsum of right wrist Overview (12/31/2023): S/p excision 11/22/23 Dr. Partida Gastroesophageal reflux disease without esophagi tis 09/06/2023 Encounters Date Type Department Care Team Description 12/02/2024 Orders Only [facility] MEDICINE [address] [place] [phone] Liz Ying ANP Adult ADHD 11/28/2024 Orders Only [facility] WALK-IN [facility]ENTER [address] [place] [phone] Liz Ying ANP Chronic diarrhea (Primary Dx) 11/28/2024 Telephone [facility] MEDICINE [address] [place] [address] Liz Ying ANP 11/24/2024 Refill [facility] [address] [place] [address] Liz Ying ANP Routine screening for STI (sexually transmitted infection) 11/14/2024 9:15 AM EDT Office Visit [facility] OPTOMETRY [address] [place] [address] Master, Lorraine, OD Myopia, bilateral (Primary Dx) 10/06/2024 11:00 AM EDT Telemedicine [facility] MEDICINE [address] [place] [address] Liz Ying ANP Adult ADHD 10/06/2024 Travel 10/05/2024 Travel 10/03/2024 Telephone [facility] MEDICINE [address] [place] [address] Liz Ying ANP chart prep 09/14/2024 Refill [facility] MED[facility]INE [address] [place] [address] Liz Ying ANP Seborrheic dermatitis 09/12/2024 1:00 PM EDT Office Visit [facility] OPTOMETRY [address] [place] [address] Dorcas Cole, OD Myopia, bilateral (Primary Dx); Corneal scar, left eye 09/12/2024 Travel from Last 3 Months Immunizations Immunization Administration Dates Next Due DTP 06/22/1994, 2,02/21/1990,1989,1989 Hep A, Adult 05/19/2020 Hep B, Adolescent or Pediatric 02/06/2002,2001,03/25/2001 Hep B, adult 05/19/2020 Hib (PRP-T) 12/02/1990, 1,04/25/1990,1989 MMR 06/22/1994,12/02/1990 OPV, Trivalent 06/22/1994, 2,1989,1989 TD (adult), 2 Lf tetanus tox oid, preservative free, adsorbed 05/13/2001 Td (adult), 5 Lf tetanus tox oid, preservative free, adsorbed 05/29/2014,08/07/2011 Tdap 07/16/2024 Social History Tobacco Use Types Packs/Day Years Used Date Smoking Tobacco: Never Smokeless Tobacco: Never Tobacco Cessation:Counseling Given: Not Answered Alcohol Use Standard Drinks/Week Comments Yes 10 (1 standard drink = 0.6 oz pu re alcohol) Depression Answer Date Recorded Patient Health Questionnaire-9 Score 1 12/31/2023 Patient Health Questionnaire-9 Score 1 12/31/2023 Last PHQ-9: Questionnaire Data Not on file 1 03/01/2023 Housing Stability Answer Date Recorded What is your housing situation today? I have jailyn chow 12/20/[address] you li ve. Do you have problems with any of the following? None of the above 12/20/2023 Food Insecurity Answer Date Recorded Within the past 12 months, y ou worried that your food would run out before you got money to buy more: Never True 07/09/2024 Within the past 12 months,th e food you bought just didn't last and you didn't have enough money to get more: Never True Transportation Answer Date Recorded In the past 12 months, has l ack of transportation kept you from medical appts, meetings, work or from getting things needed for daily living? No 12/20/2023 Utilities Answer Date Recorded In the past 12 months, has t he electric, gas, oil or water company threatened to shut off services in your home? No 12/20/2023 Depression Answer Date Recorded Patient Health Questionnaire-2 Score 0 12/31/2023 Internet Access Answer Date Recorded Internet Access Q1 Yes 12/20/2023 Internet Access Q2 Not on file 12/20/2023 Sex and Gender Information Value Date Recorded Sex Assigned at Male 12/26/2021 10:36 AM EDT Legal Sex Male 10:36 AM EDT Gender Identity Male 09/06/2023 2:45 PM EDT Sexual Orientation Choose not to disclose 2021 10:36 AM EDT Last Filed Vital Signs Vital Sign Reading Time Taken Comments Blood Pressure 133/81 07/16/2024 3:48 PM EDT Pulse 81 07/16/2024 3:48 PM EDT Temperature 36.7 C (98 F) 12/31/2023 2:49 PM EST Respiratory Rate 20 07/16/2024 3:48 PM EDT Oxygen Saturation 98% 12/31/2023 2:49 PM EST Inhaled Oxygen Concentration - - Weight 95.3 kg (210 lb) 07/16/2024 3:48 PM EDT Height 178.7 cm (5' 10.35 ) 07/16/2024 3:48 PM E DT Body Mass Index 29.83 07/16/2024 3:48 PM EDT Plan of Treatment Upcoming Encounters Date Type Department Care Team (Late st Contact Info) Description 12/09/2024 1:15 PM EDT Office Visit [facility] MEDICINE [address] [place] [address] Liz Ying, JOHNNIE [address] [place] [address] Health Maintenance Due Date Last Done Comments Family Planning (PISQ) 2004 HPV Vaccines (1 - Male 3-dose series) 2004 COVID-19 Vaccine (3 - season) 2024 09/28/2020, 09/07/2020 Influenza Vaccine (#1) 2024 Depression Screening 12/30/2024 12/31/2023, 12/31/19 SDOH Screening 07/09/2025 07/09/2024 Alcohol/Substance Use Screening 07/16/2025 07/16/2024 Disability Screening 10/05/2025 10/05/2024 Tobacco Screening 10/06/2025 10/06/2024 Lipid Panel 09/04/2028 09/05/2023, 12/09/2019 DTaP/Tdap/Td Vaccines (7 - Td or Tdap) 07/16/2034 07/16/2024, 05/29/2014, 08/07/2011, Additional history exists Zoster Vaccines (1 of 2) 08/09/2039 RSV Patients and Patients Aged 60 years or older (1 - 1-dose 75+ series) 2064 HIB Vaccines Completed 12/02/1990, 06/27, 04/25/1990, Additional history exists IPV Vaccines Completed 06/22/1994, 04/1991, 1989, Additional history exists Hepatitis A Vaccines Aged Out 05/19/2020 No long er eligible based on patient's age to complete this topic Hepatitis B Vaccines Completed 05/19/2020, 02/06/2002, 07/01/2001, Additional history exists HIV Screening Completed 12/31/2023, 06/2021, 12/09/2019 Hepatitis C Screening Completed 12/31/2023 , 09/30/2021, 12/09/2019 Meningococcal B Vaccine Aged Out No l onger eligible based on patient's age to complete this topic Meningococcal Vaccine Aged Out No ron shruthi eligible based on patient's age to complete this topic Pneumococcal Vaccine: Pediatrics (0 to 5 Years) and At-Risk Patients (6 to 49) Years Aged Out No longer eligible based on patient's age to complete this topic RSV under 20 months Aged Out No longe r eligible based on patient's age to complete this topic Rotavirus Vaccines Aged Out No longer eligible based on patient's age to complete this topic Procedures Procedure Name Priority Date/Time Associated Diagnosis Comments HEPATITIS C AB W/REFL TO HCV RNA, QN, PCR Routine 12/31/2023 3:59 PM EST Routine screening for STI (sexually transmitted infection) HIV 1/2 ANTIGEN/ANTIBODY, FOURTH GENERATION W/RFL Routine 12/31/2023 3:59 PM EST Routine screening for STI (sexually transmitted infection) LIPID PANEL, STANDARD Routine 09/05/2023 7:13 AM EDT Other chest pain from Last 3 Months or Most Recently Relevant to Health Maintenance Results * Hepatitis C Antibody with Reflex to HCV, RNA, Quantitative, Real-Time PCR (12/31/2023 3:59 PM EST) Hepatitis C Antibody Nonreactive Nonreactive [facility] Comment:Antibodies to HCV no t detected; does not exclude early acuteHCV infection. Blood Venous blood specimen / Unknown 12/31/2023 3:59 PM EST 12/31/2023 5:36 PM EST Liz [facility] LAB BLOOD ORDERABLES Final Resul t [facility] [address] [place] [phone] * HIV-1/2 Antigen and Antibodies, Fourth Generation, with Reflexes (12/31/2023 3:59 PM EST) HIV AB/AG Nonreactive Nonreactive [facility] Comment:HIV-1 p24 Ag and/or HIV-1/HIV-2 Ab not detected.A test result that is nonreactive does not exclude thepossibility of exposure to or infection with HIV-1 and/orHIV-2. Nonreactive results in this assay for individualswith prior exposure to HIV-1 and/or HIV-2 may be due toantigen and antibody levels that are below the limit ofdetection of this assay.The Kirax Alinity HIV Ag/Ab Combo assay result andsupplemental assay results should be interpreted inconjunction with the patient's clinical presentation,history and other laboratory results. If the results areinconsistent with clinical evidence, additional testing issuggested to confirm the result. Blood Venous blood specimen / Unknown 12/31/2023 3:59 PM EST 12/31/2023 5:36 PM EST Liz [facility] LAB BLOOD ORDERABLES Final Resul t [facility] [address] [place] [phone] * (ABNORMAL) Lipid Panel, Standard (09/05/2023 7:13 AM EDT) Triglycerides 79 <150 mg/dL [facility] Comment:Desirable Triglyceri de: less than 150 mg/dLBorderline High Triglyceride 150-199 mg/dLHigh Triglyceride: 200-499 mg/dLVery High Triglyceride: greater than or equal to 5OO mg/dL Cholesterol 130 <200 mg/dL [facility] Comment:Desirable Cholestero l: less than 200 mg/dLBorderline High Cholesterol: 200-239 mg/dLHigh Cholesterol: greater than 239 mg/dL LDL Cholesterol Calculated 75 <100 mg/dL [facility] Comment:Desirable LDL: less than 100 mg/dLNear Optimal/Above Optimal LDL: 110- 129 mg/dLBorderline High LDL: 130-159 mg/dLHigh LDL: 160-189 mg/dLVery High LDL: greater than or equal to 190 mg/dL HDL Cholesterol 40(L) >40 mg/dL [facility] Comment:Desirable HDL: great er than 40 mg/dL Note: This HDL assay may give artificially low results in patients with liver disease. Blood Venous blood specimen / Unknown 09/05/2023 7:13 AM EDT 09/05/2023 7:15 AM EDT Galo Lorenzo MD LAB BLOOD ORDERABL ES Final Result [facility] [address] [place], [place] [phone] from Last 3 Months or Most Recently Relevant to Health Maintenance [facility] Care Teams Patient Companion Relationship Specialty Start Date End Date Liz Ying ANP [address] [place] [address] PCP - General Family Medicine 01/15/19
--- OUTSIDE RECORDS SUMMARY | 2024-12-05 09:36 | XMS_ITS | Encounter Summary ---
Author Organization [facility] Address [address] [place] [phone] Phone Care Team Providers Care Cement Mixer Driver Name Role Phone Unavailable Primary Care Provider Unavailabl e Encounter Details Date Type Department Care Team ([facility] st Contact Info) Description 10/12/2016 Conversion Encounter [facility] - [address] [address] Social History Tobacco Use Types Packs/Day Years Used Date Smoking Tobacco: Never Assessed Sex and Gender Information Value Date Recorded Sex Assigned at Not on file Legal Sex Male 4:14 PM EDT Gender Identity Not on file Sexual Orientation Not on file documented as of this encounter Plan of Treatment Not on file documented as of this encounter Visit Diagnoses Not on filedocumented in this encounter
--- OUTSIDE RECORDS SUMMARY | 2024-12-05 09:36 | XMS_ITS | Encounter Summary ---
Author Organization [employer] Address [address] [place] [address] Care Team Providers Care Embosser Apprentice Name Role Phone Liz Ying Primary Care Provider [phone] Encounter Details Date Type Department Care Team ([facility] st Contact Info) Description 12/02/2024 Orders Only [facility] MEDICINE [address] [place] [address] Liz Ying ANP [address] [place] [address] Adult ADHD Social History Tobacco Use Types Packs/Day Years Used Date Smoking Tobacco: Never Smokeless Tobacco: Never Alcohol Use Standard Drinks/Week Comments Yes 10 [...] not to disclose 2021 10:36 AM EDT documented as of this encounter Progress Notes * JOHNNIE Nuñez - 12/02/2024 5:29 PM EDT Diagnoses and all orders for this visit: Adult ADHD - amphetamine-dextroamphetamine XR (Adderall XR) 15 MG 24 hr capsule; Take 1 capsule (15 mg) by mouth Once per day. Do not crush or chew. documented in this encounter Plan of Treatment Upcoming Encounters Date Type Department Care Team (Late st Contact Info) Description 12/09/2024 1:15 PM EDT Office Visit [facility] MEDICINE [address] [place] [phone] Liz Ying ANP [address] [place] [address] documented as of this encounter Visit Diagnoses Diagnosis Adult ADHD Attention deficit disorder with hyperactivity documented in this encounter Additional Health Concerns Assessment Noted Time PHQ-9 Depression Total Score: 1 12/31/19 24 2:52 PM EST documented as of this encounter Care Teams Embosser Apprentice Relationship Specialty Start Date End Date Liz Ying ANP [address] [place] [phone] PCP - General Family Medicine 01/15/19 documented as of this encounter
--- OUTSIDE RECORDS SUMMARY | 2024-12-05 09:36 | XMS_ITS | Encounter Summary ---
Author Organization [employer] Address [address] [facility] [address] [place] [address] Care Team Providers Care Delivery Crew Worker Name Role Phone Liz Ying Primary Care Provider [phone] Encounter Details Date Type Department Care Team ([facility] st Contact Info) Description 08/20/2024 Orders Only [facility] MEDICINE [address] [place] [address] Liz Ying ANP [address] [place] [address] Adult ADHD (Primary Dx) Social History Tobacco Use Types Packs/Day Years [...] AM EDT documented as of this encounter Plan of Treatment Upcoming Encounters Date Type Department Care Team (Late st Contact Info) Description 12/09/2024 1:15 PM EDT Office Visit [facility] MEDICINE [address] [place] [address] Liz Ying ANP [address] [place] [address] documented as of this encounter Visit Diagnoses Diagnosis Adult ADHD- Primary Attention deficit disorder with hyperactivity documented in this encounter Additional Health Concerns Assessment Noted Time PHQ-9 Depression Total Score: 1 12/31/19 24 2:52 PM EST documented as of this encounter Care Teams Delivery Crew Worker Relationship Specialty Start Date End Date Liz Ying ANP [address] [place] [phone] PCP - General Family Medicine 01/15/19 documented as of this encounter
[2024-12-05 13:23] LABS: E. coli EAEC Not Detected (Not Detect.); E. coli EPEC Not Detected (Not Detect.); E. coli ETEC Not Detected (Not Detect.); E. coli STEC Not Detected (Not Detect.); Shigella sp./EIEC Not Detected (Not Detect.)
== END 2024-12-05 09:12 | disposition home or self-care (01) ==
LOC: HO.HHCL 09:11
PROVIDERS: PCP Nurse Practitioner Primary Care; Visit Provider Nurse Practitioner Primary Care
DX: K52.9 Noninfective gastroenteritis and colitis, unspecified (principal)
CPT/HCPCS: 87177; 87209; 87507